=== PATIENT | female | born 1960 | race African-American/Black ===

== ENCOUNTER 2017-10-07 20:39 | Emergency (ER) | payer MEDICARE, MEDICAID ==
--- NOTE | 2017-10-07 21:56 | RAD ---
RIGHT FOOT: 10/07/17 Three views. HISTORY: Injury to right fifth toe. There is a fracture involving the proximal phalanx of the fifth toe distally. There is displacement o f the distal fragment laterally. No other fracture identified. IMPRESSION: Fracture proximal phalanx of fifth toe. POS: [facility]
[2017-10-07] MEDS ORDERED: HYDROcodone/Acetaminophen 10/325 mg Tablet ONE (22:09)
== END 2017-10-07 22:56 | disposition home or self-care (01) ==
LOC: ERS 20:39
DX: S92.511A Displaced fracture of proximal phalanx of right lesser toe(s), initial encounter for closed fracture (principal); F41.9 Anxiety disorder, unspecified; F32.9 Major depressive disorder, single episode, unspecified; G43.909 Migraine, unspecified, not intractable, without status migrainosus; W22.03XA Walked into furniture, initial encounter

== ENCOUNTER 2017-12-23 08:06 | Outpatient (CLI) | payer MEDICARE, MEDICAID ==
--- NOTE | 2017-12-23 09:15 | CT ---
LOW DOSE CT SCAN OF THE CHEST FOR SCREENING: Date: 12/23/17 HISTORY: Smoker for 9 years with a family history of lung cancer. FINDINGS: No pulmonary nodules or masses are seen. No pneumothorax, focal areas of consolidation, or pleural ef fusions are identified. No pericardial effusion is seen. There are mild degenerative changes in the s pine. IMPRESSION: Lung-RADS Category 1 - negative. RECOMMENDATION: Continue annual screening with LDCT in 12 months. POS: [facility]
== END 2017-12-23 08:07 | disposition home or self-care (01) ==
LOC: CT 08:06
PROVIDERS: ATTEND Family Medicine
DX: Z12.2 Encounter for screening for malignant neoplasm of respiratory organs (principal); F17.210 Nicotine dependence, cigarettes, uncomplicated
CPT/HCPCS: G0297

== ENCOUNTER 2018-01-13 21:28 | Emergency (ER) | payer MEDICARE, MEDICAID ==
--- NOTE | 2018-01-13 22:09 | RAD ---
RIGHT RIBS THREE VIEWS CHEST ONE VIEW 01/13/18 HISTORY: Fall. Right chest wall injury. FINDINGS: No displaced rib fracture or pneumothorax are apparent. The cardiac silhouette and pulmonary vasculat ure are unremarkable. Mediastinum is midline. IMPRESSION: No significant abnormalities are demonstrated. POS: [facility]
[2018-01-13 22:13] LABS: Bilirubin Small (Negative); Blood, Urine Trace (Negative); Clarity CLEAR (Clear); Glucose, Urine (Dipstick) Negative (Negative); Leukocyte Small (Negative); Nitrite Negative (Negative); Protein, Urine (Dipstick) Negative (Neg-Trace); Specific Gravity, Urine 1.025 (1.002-1.036); pH, Urine 5.5 (5.0-9.0)
[2018-01-13 22:17] LABS: Bacteria/HPF None Seen HPF (None Seen); Hyaline Casts/LPF 0-3 HYALINE CAST LPF (0-3 Hyaline); Pathc Cast-AUWi Flag 0.13 (0-2.49); Squamous Epithelial 0-3 HPF (0-3)
[2018-01-13] MEDS ORDERED: Ketorolac Tromethamine 30 MG/ML VIAL ONE (22:33)
--- NOTE | 2018-01-13 23:10 | CT ---
CT ABDOMEN AND PELVIS NONCONTRAST: 01/13/18 HISTORY: Flank pain. Hematuria. FINDINGS: Each renal collecting system, ureter, and the urinary bladder are decompressed without stone apparent . Lack of contrast limits evaluation for other abnormalities. No evidence of bowel obstruction. IMPRESSION: No CT evidence of urinary tract obstruction or calcification. POS: [facility]
== END 2018-01-13 23:14 | disposition home or self-care (01) ==
LOC: ERS 21:28
DX: R07.81 Pleurodynia (principal); N30.01 Acute cystitis with hematuria; G43.909 Migraine, unspecified, not intractable, without status migrainosus; F41.9 Anxiety disorder, unspecified; F32.9 Major depressive disorder, single episode, unspecified; W17.89XA Other fall from one level to another, initial encounter
CPT/HCPCS: 74176; 81003; 81015; 87086; 96372; J1885

== ENCOUNTER 2018-02-17 00:43 | Emergency (ER) | payer MEDICARE, MEDICAID | END 2018-02-17 02:05 | disposition home or self-care (01) | LOC: ERS 00:43 | DX: J02.9 Acute pharyngitis, unspecified (principal); F41.9 Anxiety disorder, unspecified; F32.9 Major depressive disorder, single episode, unspecified; G43.909 Migraine, unspecified, not intractable, without status migrainosus; Z79.899 Other long term (current) drug therapy | CPT/HCPCS: 87081; 87430; 99283 ==

== ENCOUNTER 2018-05-18 00:35 | Observation (INO) | payer MEDICARE, MEDICAID ==
[2018-05-18 01:05] LABS: Bilirubin Negative (Negative); Blood, Urine Moderate (Negative); Clarity CLEAR (Clear); Glucose, Urine (Dipstick) Negative (Negative); Leukocyte Negative (Negative); Nitrite Negative (Negative); Protein, Urine (Dipstick) Negative (Neg-Trace); Specific Gravity, Urine 1.021 (1.002-1.036); Urobilinogen 0.2 mg/dL (0.2-1.0)
[2018-05-18 01:08] LABS: Bacteria/HPF None Seen HPF (None Seen); Hyaline Casts/LPF 0-3 HYALINE CAST LPF (0-3 Hyaline); Pathc Cast-AUWi Flag 0.14 (0-2.49); Squamous Epithelial 0-3 HPF (0-3); WBC/HPF 0-3 HPF (0-3)
[2018-05-18 01:32] LABS: Band 22 % (5-11); Hemoglobin 13.1 g/dL (12.0-16.0); Lymphocytes 14 % (21-51); MDiff Complete? YES; Mean Corpuscular HGB CONC 33.3 g/dL (32.0-36.0); Mean Corpuscular Hemoglobin 31.6 pg (27.0-31.0); Mean Platelet Volume 7.1 fL (7.4-10.4); Monocytes 4 % (0-10); Neutrophil 60 % (42-75); PLT Morphology Comment Appears Adequate; Platelet Count 257 thou/uL (130-400); RBC Distribution Width 12.2 % (11.5-14.5); Red Blood Cell (RBC) Count 4.15 mill/uL (4.20-5.40); White Blood Cell (WBC) Count 20.5 thou/uL (4.8-10.8)
[2018-05-18 01:43] LABS: ALT (SGPT) 22 U/L (8-55); AST (SGOT) 30 U/L (5-34); Albumin 4.3 g/dL (3.5-5.0); Alkaline Phosphatase 57 U/L (40-150); Anion Gap 12 mmol/L (10-20); BUN (Urea Nitrogen) 15 mg/dL (9.8-20.1); Bilirubin, Total 0.5 mg/dL (0.2-1.2); Calc. Creatinine Clearance 0 mL/min (70-130); Calcium 9.3 mg/dL (7.8-10.44); Carbon Dioxide 22 mmol/L (22-29); Chloride 97 mmol/L (98-107); Estimated GFR-MDRD Greater than 90; Globulin 3.2 g/dL (2.4-3.5); Glucose 116 mg/dL (70-105); Lipase 16 U/L (8-78); Potassium 3.4 mmol/L (3.5-5.1); Protein, Total 7.5 g/dL (6.0-8.3); Sodium 128 mmol/L (136-145)
[2018-05-18] MEDS ORDERED: Lidocaine Viscous Sol 2% 15 ml UD Cup ONE (02:27)
[2018-05-18] MEDS ORDERED: Mag-Al 1200 mg/1200 mg/30 ML UDCUP ONE (02:27)
[2018-05-18] MEDS ORDERED: cefOXitin 2 GM in Sodium Chloride 0.9% 100 ML IVPB SCH ×2 (05:30→14:00)
[2018-05-18 07:32] VITALS: BMI 22.6
[2018-05-18] MEDS: Sodium Chloride 0.9% 1,000 ML IV SCH ×2 (08:28→16:58)
--- NOTE | 2018-05-18 11:10 | CT ---
PRELIMINARY REPORT/[facility]/EMERGENTY AFTER-HOURS PROCEDURE Findings discussed with CELSO HERNANDEZ MD at time of interpretation. Initial Report created on 05/18/2018 4:59 AM Central Time ([place] & [place]) CT Abdomen and Pelvis Without Intravenous Contrast CLINICAL HISTORY: 57 years old, female; Pain and signs and symptoms; Constipation; Abdominal pain; Prior surgery; Patie nt HX: 57 yo f presents to ed with abdominal pain. PT reports cramping abdominal pain that started ea rlier this evening about an hour after she drank 7 bud lights. PT reports nausea, denies vomiting. PT reports similar pain in the past when she couldn't use bathroom, PT currently hasn't had a bowel mov ement in 3 days. PT reports she has not been able to burp. PT denies painful urination, denies blood in her urine. PT denies HX of kidney stones TECHNIQUE: Axial computed tomography images of the abdomen and pelvis without intravenous contrast. Coronal refo rmatted images were created and reviewed. COMPARISON: No relevant prior studies available. FINDINGS: Lower thorax: No acute findings. ABDOMEN: Liver: Normal. No mass. Gallbladder and bile ducts: Normal. No calcified stones. No ductal dilation. Pancreas: Normal. No ductal dilation. Spleen: Normal. No splenomegaly. Adrenals: Normal. No mass. Kidneys and ureters: Normal. No hydronephrosis. Stomach and bowel: Normal. No obstruction. No mucosal thickening. Appendix: Appendix is enlarged at 1.2 cm in caliber with appendicoliths in the lumen and mild periapp endiceal inflammation, consistent with acute appendicitis. PELVIS: Bladder: Unremarkable as visualized. Reproductive: Unremarkable as visualized. ABDOMEN and PELVIS: Intraperitoneal space: No pneumoperitoneum or abscess. Bones/joints: No acute fracture. No dislocation. Soft tissues: Unremarkable. Vasculature: Normal. No abdominal aortic aneurysm. Lymph nodes: Normal. No enlarged lymph nodes. IMPRESSION: Acute appendicitis. Thank you for allowing us to participate in the care of your patient. Dictated and Authenticated by: Min Rodriguez MD 05/18/2018 4:59 AM Central Time ([place] & [place]) FINAL REPORT CT ABDOMEN AND PELVIS: Multiple axial tomograms are obtained through the abdomen and pelvis without IV contrast. HISTORY: Abdominal pain as noted on the preliminary report. The appendix is enlarged and there is mild inflammatory change present. Findings are consistent with changes of early acute appendicitis. I am in agreement with the preliminary report. POS: [facility]
[2018-05-18] MEDS ORDERED: Midazolam HCl 2 mg/2 ml Vial ONE (13:29)
--- NOTE | 2018-05-18 14:03 | HP ---
CHIEF COMPLAINT: Abdominal pain. HISTORY OF PRESENT ILLNESS: This is a 57-year-old female who presents with pain in her diffuse abdom en associated with nausea and bloating. The pain became so severe she presented to the emergency duglas . She never had right lower quadrant pain. CT scan reveals evidence of appendicitis. The patient denies previous history of chronic abdominal pain, Crohn's disease, inflammatory bowel disease. She has never had pain like this before. She had a normal bowel movement 2 days ago. No fevers or chill s. No vomiting. PAST MEDICAL HISTORY: Migraines. PAST SURGICAL HISTORY: Ectopic , tubal ligation. MEDICINES TAKEN DAILY: Clonazepam. ALLERGIES: PENICILLIN. SOCIAL HISTORY: She drinks socially. No smoking. No other drugs. REVIEW OF SYSTEMS: Ten system review of systems otherwise negative unless described above. FAMILY HISTORY: Noncontributory to GI malignancy or anesthetic related complication. PHYSICAL EXAMINATION: VITAL SIGNS: Blood pressure 123/75, pulse 69, respirations 18. She is afebrile. HEENT: Sclerae are anicteric. Oropharynx clear. NECK: No lymphadenopathy. CHEST: Clear. HEART: Regular rhythm. ABDOMEN: Soft, tender right lower quadrant. She does have localized guarding in the right lower rhys drant without rebound tenderness, no abdominal hernias. EXTREMITIES: No ischemia or edema to extremities. LABORATORY DATA: White cell count is 20, hemoglobin is 13, platelet count is 257, creatinine 0.73. ASSESSMENT: Acute appendicitis. PLAN: Laparoscopic appendectomy. Risks, benefits, alternatives discussed. She gives consent. We w ill do this today.
[2018-05-18] MEDS ORDERED: Bupivacaine/Epinephrine 0.25% 30 ML VIAL ONE (14:48)
[2018-05-18] MEDS ORDERED: Fentanyl 100 MCG/2 ML VIAL ONE (14:52)
[2018-05-18] MEDS ORDERED: Famotidine/PF 20 mg/2ml Vial ONE (14:52)
[2018-05-18] MEDS ORDERED: Ketorolac Tromethamine 30 MG/ML VIAL ONE (14:58)
[2018-05-18] MEDS ORDERED: Ondansetron HCl/PF 4 MG/2 ML Vial ONE (14:58)
[2018-05-18] MEDS ORDERED: Dexamethasone 20 MG/5 ML VIAL ONE (14:58)
[2018-05-18] MEDS ORDERED: Lidocaine 1% PF 5 ML VIAL ONE (14:58)
[2018-05-18] MEDS ORDERED: Esmolol 100 MG/10 ML VIAL ONE (14:58)
[2018-05-18] MEDS ORDERED: Glycopyrrolate 0.2 MG/ML 5 ML SYRINGE ONE (14:58)
[2018-05-18] MEDS ORDERED: PROPOFOL 200 MG/20 ML VIAL ONE (14:58)
[2018-05-18] MEDS ORDERED: Succinylcholine Chloride 20 MG/ML 10 ml SYRINGE FS ONE (14:58)
[2018-05-18] MEDS ORDERED: Promethazine HCl 25 MG/ML VIAL SLOW IVP PRN (15:52)
[2018-05-18] MEDS ORDERED: Promethazine HCl 25 MG/ML VIAL IM PRN ×2 (15:52→16:53)
[2018-05-18] MEDS ORDERED: Ondansetron HCl/PF 4 MG/2 ML Vial IVP PRN ×2 (15:52→16:53)
[2018-05-18] MEDS ORDERED: Meperidine HCl/PF 25 MG/ML VIAL SLOW IVP PRN (15:52)
[2018-05-18] MEDS ORDERED: hydrALAZINE 20 MG/ML VIAL SLOW IVP PRN (16:53)
[2018-05-18] MEDS ORDERED: Dextrose 50% Abboject 50 ML SYRINGE SLOW IVP PRN (16:53)
[2018-05-18] MEDS ORDERED: Dextrose 5% in Water 1,000 ML IV PRN (16:53)
[2018-05-18] MEDS ORDERED: Sodium Chloride 0.9% 1,000 ML IV SCH (16:53)
[2018-05-18] MEDS ORDERED: HYDROcodone/Acetaminophen 10/325 mg Tablet PO PRN ×2 (16:53)
[2018-05-18] MEDS ORDERED: Fentanyl 100 MCG/2 ML VIAL SLOW IVP PRN ×2 (16:53)
[2018-05-18 16:55] VITALS: TEMP 97.5
[2018-05-18 18:44] VITALS: BP 115/72
[2018-05-18] MEDS ORDERED: Famotidine 20 MG TAB PO SCH (21:00)
[2018-05-18] MEDS ORDERED: Famotidine/PF 20 mg/2ml Vial SLOW IVP SCH (21:00)
--- NOTE | 2018-05-18 23:08 | OP ---
DATE OF OPERATION: 05/18/2018 PREOPERATIVE DIAGNOSIS: Acute appendicitis. POSTOPERATIVE DIAGNOSIS: Acute appendicitis. PROCEDURE: Laparoscopic appendectomy. SURGEON: Jama Ortiz M.D. ANESTHESIA: General. ESTIMATED BLOOD LOSS: Minimal. COMPLICATIONS: None. SPECIMEN: Appendix. FINDINGS: Appendicitis. TECHNIQUE: The patient was taken to the operating room and laid supine on the operating room supine on the table. After general anesthetic was obtained, a Schrader was placed. The abdomen shaved, preppe d, and draped in a sterile fashion. Curved incision was made below the umbilicus. Cautery was used to dissect down to and score the fascia. Abdominal cavity entered bluntly using a Lorena clamp. Hold ing stitch of PDS placed on each side of the fascia. Cage trocar was placed and high-flow pneumope ritoneum was obtained. Left lower quadrant suprapubic 5 mm port was placed under direct visualizatio n. Cecum was rolled over to reveal acute appendicitis. A small window was made at the base of the a ppendix and the mesoappendix. Laparoscopic stapler was fired across the base of the appendix. A sta pler reload fired across the mesoappendix. Appendix was placed in an Endo catch bag and brought out through the Cage. A bleeder on the staple line was clipped using laparoscopic clip. The right low er quadrant and pelvis was irrigated using sterile solution. There was no evidence of perforation. There was no damage to any intraabdominal structures. All port sites were infiltrated using local an esthetic. All ports were removed under camera visualization. Pneumoperitoneum was let down. PDS wa s used to close the fascia above and below the umbilicus. All incisions were irrigated and closed us ing 4-0 Monocryl and Dermabond. The patient went to recovery in stable condition. All instrument co unts, needle counts, lap counts were correct.
--- NOTE | 2018-05-23 12:05 | EKG ---
Test Reason : Blood Pressure : / mmHG Vent. Rate : 075 BPM Atrial Rate : 075 BPM P-R Int : 128 ms QRS Dur : 088 ms QT Int : 378 ms P-R-T Axes : 052 054 009 degrees QTc Int : 422 ms Normal sinus rhythm Nonspecific T wave abnormality Abnormal ECG Confirmed by DAVID TUCKER, CELSO Dominguez ([id number]), telegraph editor RANCHO RIOS ([id number]) on 05/23/2018 12:04:41 PM Referred By: DAVID Confirmed By:CELSO HERNANDEZ MD
== END 2018-05-18 19:30 | disposition home or self-care (01) ==
LOC: ERS 00:35 → SURG A 05:38
PROVIDERS: ADMIT Surgery; ATTEND Surgery
PROC: 0DTJ4ZZ Resection of Appendix, Percutaneous Endoscopic Approach (ICD-10-PCS; principal; 2018-05-18)
DX: K35.80 Unspecified acute appendicitis (principal); G43.909 Migraine, unspecified, not intractable, without status migrainosus; Z88.0 Allergy status to penicillin; Z88.5 Allergy status to narcotic agent
CPT/HCPCS: 44970; 74176; 80053; 83690; 85025; 88304; 93005; 96365; 99285; G0378; 36415; 81003; 81015; J0694; J1100; J1885; J2001; J2250; J2405; J2704; J3010; J7050; S0028

== ENCOUNTER 2018-07-14 19:07 | Emergency (ER) | payer MEDICARE, MEDICAID ==
--- NOTE | 2018-07-14 20:26 | RAD ---
RIGHT MIDDLE FINGER THREE VIEWS: 07/14/18 HISTORY: Right finger injury. FINDINGS: Joint spaces are preserved. No acute fracture, dislocation, or radiopaque foreign bodies. IMPRESSION: No acute osseous abnormalities are demonstrated. POS: [facility]
== END 2018-07-14 20:42 | disposition home or self-care (01) ==
LOC: ERS 19:07
DX: S60.031A Contusion of right middle finger without damage to nail, initial encounter (principal); F32.9 Major depressive disorder, single episode, unspecified; F41.9 Anxiety disorder, unspecified; G43.909 Migraine, unspecified, not intractable, without status migrainosus; F17.210 Nicotine dependence, cigarettes, uncomplicated; W22.8XXA Striking against or struck by other objects, initial encounter

== ENCOUNTER 2019-01-07 08:53 | Outpatient (CLI) | payer MEDICARE, MEDICAID | END 2019-01-07 08:54 | disposition home or self-care (01) | LOC: BICMAMMO 08:53 | PROVIDERS: ATTEND Family Medicine | DX: Z12.31 Encounter for screening mammogram for malignant neoplasm of breast (principal) | CPT/HCPCS: 77063; 77067 ==

== ENCOUNTER 2019-01-13 22:41 | Emergency (ER) | payer MEDICARE, MEDICAID ==
[2019-01-13] MEDS ORDERED: Ketorolac Tromethamine 30 MG/ML VIAL ONE (23:41)
[2019-01-13] MEDS ORDERED: Ibuprofen 200 MG TAB ONE (23:51)
[2019-01-14 00:22] LABS: Bilirubin Negative (Negative); Blood, Urine Negative (Negative); Clarity CLEAR (Clear); Glucose, Urine (Dipstick) Negative (Negative); Leukocyte Negative (Negative); Nitrite Negative (Negative); Protein, Urine (Dipstick) Negative (Neg-Trace); Specific Gravity, Urine 1.008 (1.002-1.036); Urobilinogen 0.2 mg/dL (0.2-1.0)
== END 2019-01-14 01:47 | disposition home or self-care (01) ==
LOC: ERS 22:41
DX: M54.5 Low back pain (principal); F41.9 Anxiety disorder, unspecified; F32.9 Major depressive disorder, single episode, unspecified; G43.909 Migraine, unspecified, not intractable, without status migrainosus; Z71.6 Tobacco abuse counseling; Z79.899 Other long term (current) drug therapy
CPT/HCPCS: 81003; 99406; J1885

== ENCOUNTER 2019-03-17 21:17 | Emergency (ER) | payer MEDICARE, MEDICAID | END 2019-03-17 23:09 | disposition home or self-care (01) | LOC: ERS 21:17 | DX: K12.0 Recurrent oral aphthae (principal); G43.909 Migraine, unspecified, not intractable, without status migrainosus; F41.9 Anxiety disorder, unspecified; F32.9 Major depressive disorder, single episode, unspecified; F17.210 Nicotine dependence, cigarettes, uncomplicated | CPT/HCPCS: 99282 ==

== ENCOUNTER 2019-05-29 16:59 | Emergency (ER) | payer MEDICAID, MEDICARE ==
[2019-05-29] MEDS ORDERED: Lorazepam 2 MG/ML VIAL ONE (18:42)
[2019-05-29] MEDS ORDERED: Lorazepam 1 MG TAB ONE (18:50)
== END 2019-05-29 19:07 | disposition home or self-care (01) ==
LOC: ERS 16:59
DX: F41.9 Anxiety disorder, unspecified (principal); F32.9 Major depressive disorder, single episode, unspecified; F17.210 Nicotine dependence, cigarettes, uncomplicated
CPT/HCPCS: 99283; J2060

== ENCOUNTER 2019-10-18 07:49 | Emergency (ER) | payer MEDICARE, OTHER ==
[2019-10-18] MEDS ORDERED: Acetaminophen 500 MG TAB ONE (08:02)
--- NOTE | 2019-10-18 08:34 | RAD ---
2 VIEWS CHEST: Date: 10/18/19 PROVIDED CLINICAL HISTORY: Cough and fever. FINDINGS: Comparison with 01/07/16. Cardiac and mediastinal silhouette is within normal limits. No focal consolidation, pleural fluid, or pneumothorax apparent. Bibasilar subsegmental atelectatic changes are seen. IMPRESSION: No definite evidence for an acute cardiopulmonary process. POS: [facility]
== END 2019-10-18 09:02 | disposition home or self-care (01) ==
LOC: ERS 07:49
DX: J11.1 Influenza due to unidentified influenza virus with other respiratory manifestations (principal); F41.9 Anxiety disorder, unspecified; F32.9 Major depressive disorder, single episode, unspecified; F17.210 Nicotine dependence, cigarettes, uncomplicated; Z79.899 Other long term (current) drug therapy
CPT/HCPCS: 71046; 87804; 94640; J7620

== ENCOUNTER 2019-10-19 12:15 | Emergency (ER) | payer MEDICARE, OTHER | END 2019-10-19 13:37 | disposition home or self-care (01) | LOC: ERS 12:15 | DX: B34.9 Viral infection, unspecified (principal); G43.909 Migraine, unspecified, not intractable, without status migrainosus; F41.9 Anxiety disorder, unspecified; F32.9 Major depressive disorder, single episode, unspecified; F17.210 Nicotine dependence, cigarettes, uncomplicated; Z79.1 Long term (current) use of non-steroidal anti-inflammatories (NSAID); Z79.891 Long term (current) use of opiate analgesic; Z79.51 Long term (current) use of inhaled steroids | CPT/HCPCS: 99281 ==

== ENCOUNTER 2020-01-05 10:42 | Emergency (ER) | payer MEDICARE, OTHER ==
--- NOTE | 2020-01-05 11:34 | RAD ---
PA AND LATERAL CHEST: Date: 01/05/2020 COMPARISON: 10/18/2019 study. FINDINGS: Heart size and mediastinum are within normal limits. Lungs are clear of any infiltrates. There is dean ear scarring in the left base. IMPRESSION: No active intrathoracic disease. POS: [facility]
[2020-01-05 11:42] LABS: #Basophils 0.1 thou/uL (0.0-0.2); #Lymphocytes 1.3 thou/uL (1.20-3.40); #Monocytes 0.5 thou/uL (0.11-0.59); #Neutrophils 6.9 thou/uL (1.40-6.50); %Basophils 0.8 % (0.0-1.0); %Eosinophils 0.5 % (0.0-10.0); %Lymphocytes 14.8 % (21.0-51.0); %Monocytes 5.5 % (0.0-10.0); %Neutrophils 78.5 % (42.0-75.0); Hemoglobin 14.9 g/dL (12.0-16.0); Mean Corpuscular Hemoglobin 32.8 pg (27.0-31.0); Mean Corpuscular Volume 96.5 fL (78.0-98.0); Mean Platelet Volume 7.6 fL (7.4-10.4); Platelet Count 272 thou/uL (130-400); RBC Distribution Width 12.6 % (11.5-14.5); Red Blood Cell (RBC) Count 4.53 mill/uL (4.20-5.40); White Blood Cell (WBC) Count 8.8 thou/uL (4.8-10.8)
[2020-01-05 12:04] LABS: ALT (SGPT) 25 U/L (8-55); AST (SGOT) 35 U/L (5-34); Alkaline Phosphatase 78 U/L (40-110); Anion Gap 12 mmol/L (10-20); BUN (Urea Nitrogen) 13 mg/dL (9.8-20.1); Bilirubin, Total 0.6 mg/dL (0.2-1.2); Calc. Creatinine Clearance 0 mL/min (70-130); Calcium 8.7 mg/dL (7.8-10.44); Carbon Dioxide 26 mmol/L (22-29); Chloride 103 mmol/L (98-107); Estimated GFR-MDRD 77; Globulin 3.3 g/dL (2.4-3.5); Glucose 95 mg/dL (70-105); Lipase 26 U/L (8-78); Potassium 3.7 mmol/L (3.5-5.1); Protein, Total 7.3 g/dL (6.0-8.3); Sodium 137 mmol/L (136-145)
== END 2020-01-05 12:30 | disposition home or self-care (01) ==
LOC: ERS 10:42
DX: R11.2 Nausea with vomiting, unspecified (principal); R19.7 Diarrhea, unspecified; G43.909 Migraine, unspecified, not intractable, without status migrainosus; F41.9 Anxiety disorder, unspecified; F32.9 Major depressive disorder, single episode, unspecified; F17.210 Nicotine dependence, cigarettes, uncomplicated
CPT/HCPCS: 36415; 71046; 80053; 83605; 83690; 85025; 87804

== ENCOUNTER 2020-04-10 09:54 | Emergency (ER) | payer MEDICARE, OTHER ==
[2020-04-10] MEDS ORDERED: Lorazepam 1 MG TAB ONE (10:20)
== END 2020-04-10 10:34 | disposition home or self-care (01) ==
LOC: ERS 09:54
DX: F41.0 Panic disorder [episodic paroxysmal anxiety] (principal); G43.909 Migraine, unspecified, not intractable, without status migrainosus; F17.210 Nicotine dependence, cigarettes, uncomplicated; Z79.899 Other long term (current) drug therapy
CPT/HCPCS: 99283

== ENCOUNTER 2020-04-13 00:14 | Emergency (ER) | payer MEDICARE, OTHER | END 2020-04-13 01:40 | disposition home or self-care (01) | LOC: ERS 00:14 | DX: F41.9 Anxiety disorder, unspecified (principal); F32.9 Major depressive disorder, single episode, unspecified; F17.210 Nicotine dependence, cigarettes, uncomplicated; F41.0 Panic disorder [episodic paroxysmal anxiety]; G43.909 Migraine, unspecified, not intractable, without status migrainosus; Z79.899 Other long term (current) drug therapy | CPT/HCPCS: 99283 ==

== ENCOUNTER 2020-09-20 16:36 | Emergency (ER) | payer MEDICARE, MEDICAID ==
[2020-09-21 14:52] LABS: SARS-CoV-2 MS2 Positive; SARS-CoV-2 N Gene Negative; SARS-CoV-2 S Gene Negative; SARS-CoV-2 by NAA Not Detected (NotDetected); SARS-CoV-2 orf1ab Negative
== END 2020-09-20 17:55 | disposition home or self-care (01) ==
LOC: ERS 16:36
DX: J02.9 Acute pharyngitis, unspecified (principal); Z20.828 Contact with and (suspected) exposure to other viral communicable diseases; G43.909 Migraine, unspecified, not intractable, without status migrainosus; F32.9 Major depressive disorder, single episode, unspecified; F41.9 Anxiety disorder, unspecified; F17.210 Nicotine dependence, cigarettes, uncomplicated; Z79.899 Other long term (current) drug therapy
CPT/HCPCS: 99283; U0003; 87635

== ENCOUNTER 2020-11-12 11:44 | Emergency (ER) | payer MEDICARE, OTHER ==
[2020-11-12] MEDS ORDERED: Ibuprofen 200 MG TAB ONE (12:25)
[2020-11-12 12:55] LABS: Bilirubin Negative (Negative); Blood, Urine 2+ (Negative); Clarity Turbid (Clear); Glucose, Urine (Dipstick) Normal (Negative); Ketone, Urine Negative (Negative); Leukocyte 500 Leu/uL (Negative); Nitrite Negative (Negative); Protein, Urine (Dipstick) 30 mg/dL (Neg-Trace); Specific Gravity, Urine 1.023 (1.002-1.036); WBC/HPF Greater than 50 HPF (0-3); pH, Urine 5.5 (5.0-9.0)
[2020-11-12 13:03] LABS: Bacteria/HPF 1+ HPF (None Seen)
[2020-11-12 13:04] LABS: Mucous/LPF 1+ LPF (<2+)
== END 2020-11-12 13:47 | disposition home or self-care (01) ==
LOC: ERS 11:44
DX: J02.9 Acute pharyngitis, unspecified (principal); N39.0 Urinary tract infection, site not specified; F17.210 Nicotine dependence, cigarettes, uncomplicated
CPT/HCPCS: 81003; 81015; 87081; 87086; 87430; 99283

== ENCOUNTER 2021-05-17 13:03 | Emergency (ER) | payer MEDICARE, MEDICAID ==
[~2021-05-17 13:03] MED LIST: Iopamidol-370 76% 500 ML 1 ML ONE
[2021-05-17 14:58] LABS: Bilirubin Negative (Negative); Blood, Urine 1+ (Negative); Clarity Turbid (Clear); Glucose, Urine (Dipstick) Normal (Negative); Ketone, Urine Negative (Negative); Leukocyte Negative Leu/uL (Negative); Nitrite Negative (Negative); Protein, Urine (Dipstick) Negative (Neg-Trace); RBC/HPF 0-3 HPF (0-3); Specific Gravity, Urine 1.018 (1.002-1.036); Urobilinogen Normal mg/dL (Less than 2); WBC/HPF 0-3 HPF (0-3); pH, Urine 5.5 (5.0-9.0)
[2021-05-17 15:01] LABS: Bacteria/HPF 1+ HPF (None Seen)
[2021-05-17 15:08] LABS: #Lymphocytes 1.7 thou/uL (1.20-3.40); #Monocytes 0.9 thou/uL (0.11-0.59); #Neutrophils 13.7 thou/uL (1.40-6.50); %Basophils 0.1 % (0.0-1.0); %Eosinophils 0.2 % (0.0-10.0); %Lymphocytes 10.4 % (21.0-51.0); %Monocytes 5.5 % (0.0-10.0); %Neutrophils 83.8 % (42.0-75.0); Hemoglobin 15.1 g/dL (12.0-16.0); Mean Corpuscular HGB CONC 32.1 g/dL (32.0-36.0); Mean Corpuscular Hemoglobin 32.5 pg (27.0-31.0); Mean Platelet Volume 7.4 fL (7.4-10.4); Platelet Count 270 thou/uL (130-400); RBC Distribution Width 11.7 % (11.5-14.5); Red Blood Cell (RBC) Count 4.66 mill/uL (4.20-5.40); White Blood Cell (WBC) Count 16.4 thou/uL (4.8-10.8)
[2021-05-17 15:27] LABS: ALT (SGPT) 105 U/L (8-55); AST (SGOT) 91 U/L (5-34); Albumin 4.2 g/dL (3.5-5.0); Alkaline Phosphatase 112 U/L (40-110); Anion Gap 16 mmol/L (10-20); BUN (Urea Nitrogen) 8 mg/dL (9.8-20.1); Bilirubin, Total 0.5 mg/dL (0.2-1.2); Calc. Creatinine Clearance 0 mL/min (70-130); Calcium 9.3 mg/dL (7.8-10.44); Carbon Dioxide 21 mmol/L (22-29); Chloride 102 mmol/L (98-107); Globulin 3.8 g/dL (2.4-3.5); Glucose 103 mg/dL (70-105); Potassium 3.8 mmol/L (3.5-5.1); Sodium 135 mmol/L (136-145)
[2021-05-17 16:35] LABS: SARS-CoV-2 NAA Rapid Test Not Detected (NotDetected)
[2021-05-17 17:03] LABS: CK (CPK) 30 U/L (29-168); Lipase 13 U/L (8-78)
[2021-05-17] MEDS ORDERED: Acetaminophen 500 MG TAB ONE (17:25)
== END 2021-05-17 18:30 | disposition home or self-care (01) ==
LOC: ERS 13:03
DX: K52.9 Noninfective gastroenteritis and colitis, unspecified (principal); Z20.822 Contact with and (suspected) exposure to COVID-19; G43.909 Migraine, unspecified, not intractable, without status migrainosus; F17.210 Nicotine dependence, cigarettes, uncomplicated; Z79.899 Other long term (current) drug therapy
CPT/HCPCS: 0240U; 71045; 71275; 76705; 80053; 82550; 83605; 83690; 83880; 84484; 85025; 85379; 87040; 93005; 99284; 36415; 81003; 81015; Q9967

== ENCOUNTER 2021-10-31 21:54 | Emergency (ER) | payer MEDICARE, MEDICAID | END 2021-11-01 00:19 | disposition home or self-care (01) | LOC: ERS 21:54 | DX: R51.9 Headache, unspecified (principal); I10 Essential (primary) hypertension; F17.210 Nicotine dependence, cigarettes, uncomplicated; Z79.899 Other long term (current) drug therapy | CPT/HCPCS: 93005 ==

== ENCOUNTER 2021-11-12 16:27 | Emergency (ER) | payer MEDICARE, MEDICAID | END 2021-11-12 18:30 | disposition home or self-care (01) | LOC: ERS 16:27 | DX: I10 Essential (primary) hypertension (principal); G43.909 Migraine, unspecified, not intractable, without status migrainosus; F17.210 Nicotine dependence, cigarettes, uncomplicated | CPT/HCPCS: 93005 ==

== ENCOUNTER 2022-05-06 17:08 | Emergency (ER) | payer MEDICARE, MEDICAID ==
[2022-05-06] MEDS ORDERED: Ibuprofen 200 MG TAB ONE (17:44)
[2022-05-06] MEDS ORDERED: Albuterol 200 PUFF (6.7GM INHALER) ONE (17:53)
[2022-05-06 18:23] LABS: Bacteria/HPF None Seen HPF (None Seen); Bilirubin Negative (Negative); Blood, Urine Trace (Negative); Clarity Clear (Clear); Glucose, Urine (Dipstick) Normal (Negative); Ketone, Urine Negative (Negative); Leukocyte Negative Leu/uL (Negative); Nitrite Negative (Negative); Protein, Urine (Dipstick) Negative (Neg-Trace); RBC/HPF 0-3 HPF (0-3); Specific Gravity, Urine 1.011 (1.002-1.036); Squamous Epithelial 0-3 HPF (0-3); Urobilinogen Normal mg/dL (Less than 2); WBC/HPF 0-3 HPF (0-3); pH, Urine 5.5 (5.0-9.0)
[2022-05-07 14:37] LABS: Chlamydia by PCR Not Detected (NotDetected); GC by PCR Not Detected (NotDetected)
== END 2022-05-06 19:50 | disposition home or self-care (01) ==
LOC: ERS 17:08
DX: B34.9 Viral infection, unspecified (principal); N76.0 Acute vaginitis; R51.9 Headache, unspecified; Z20.822 Contact with and (suspected) exposure to COVID-19; F17.210 Nicotine dependence, cigarettes, uncomplicated
CPT/HCPCS: 71045; 87480; 87491; 87510; 87591; 87660; 87804 ×2; U0003; U0005; 81003; 81015

== ENCOUNTER 2022-05-09 22:43 | Emergency (ER) | payer MEDICARE, MEDICAID ==
[2022-05-09] MEDS ORDERED: Ketorolac Tromethamine 30 MG/ML VIAL ONE (23:46)
== END 2022-05-10 00:22 | disposition home or self-care (01) ==
LOC: ERS 22:43
DX: R51.9 Headache, unspecified (principal); I10 Essential (primary) hypertension; F17.210 Nicotine dependence, cigarettes, uncomplicated; Z79.899 Other long term (current) drug therapy
CPT/HCPCS: 96372; 99283; J1885

== ENCOUNTER 2022-05-25 00:38 | Emergency (ER) | payer MEDICARE, MEDICAID | END 2022-05-25 01:31 | disposition home or self-care (01) | LOC: ERS 00:38 | DX: R51.9 Headache, unspecified (principal); I10 Essential (primary) hypertension; F17.210 Nicotine dependence, cigarettes, uncomplicated; Z79.899 Other long term (current) drug therapy | CPT/HCPCS: 99283 ==